=== PATIENT | female | born 1970 | race Caucasian/White ===

== ENCOUNTER → 2019-08-02 08:47 | Outpatient (BNVA) | payer OTHER, SELFPAY | PROVIDERS: Family Provider Nurse Practitioner Family; PCP Nurse Practitioner Family; Visit Provider Registered Nurse | DX: I10 Essential (primary) hypertension (principal); M19.90 Unspecified osteoarthritis, unspecified site; E03.9 Hypothyroidism, unspecified | CPT/HCPCS: 80053; 80061; 84443; 85025 ==

== ENCOUNTER → 2019-11-15 08:59 | Outpatient (BNVA) | payer OTHER, SELFPAY | PROVIDERS: Family Provider Nurse Practitioner Family; PCP Nurse Practitioner Family; Visit Provider Registered Nurse | DX: E03.9 Hypothyroidism, unspecified (principal); I10 Essential (primary) hypertension; E78.49 Other hyperlipidemia | CPT/HCPCS: 80053; 80061 ==

== ENCOUNTER 2020-10-12 11:31 | Outpatient (CLI) | payer OTHER, SELFPAY ==
--- NOTE | 2020-10-12 11:45 | MR_ITS ---
WS: [id number] MRI CERVICAL SPINE NONCONTRAST HISTORY: M50.90 - Cervical disc disorder, unspecified, unspecified cervical region COMPARISON: 01/12/2018 Technique: Multiplanar, multisequence noncontrast imaging of the cervical spine. Straightening of the normal cervical lordosis. Disc bulging and osteophytosis at C5-6 and C6-7 has sl ightly progressed since the prior study. There is no contact on the ventral cervical cord. Signal within the cervical cord is normal. Visualized posterior fossa is unremarkable. Craniocervical junction, C1 and C2 relationship, odontoid process and soft tissues are normal. C2-C3: Normal. C3-C4: Mild osteophytic ridging. No stenosis. C4-C5: Shallow central disc protrusion. Very mild narrowing of the foramen. C5-C6: Diffuse osteophytic ridging and annular disc bulging. Disc contacts the ventral cord. There is moderate to severe central and foraminal stenosis due to disc osteophyte disease. C6-C7: Diffuse annular disc bulging and osteophytic ridging contacting the ventral cord. Moderate to severe central and bilateral foraminal stenosis. C7-T1: Normal. Paraspinal soft tissue are normal. MR/MR cervical spin wo con* [id number] IMPRESSION: 1. 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 2. Cord contact at C5-6 and C6-7 without myelomalacia.
== END 2020-10-12 11:32 | disposition home or self-care (01) ==
LOC: RADSHAW 11:39
PROVIDERS: PCP Registered Nurse; Visit Provider Registered Nurse
DX: M50.90 Cervical disc disorder, unspecified, unspecified cervical region (principal); G56.93 Unspecified mononeuropathy of bilateral upper limbs; M48.02 Spinal stenosis, cervical region; M25.78 Osteophyte, vertebrae; I10 Essential (primary) hypertension; E03.9 Hypothyroidism, unspecified; E78.5 Hyperlipidemia, unspecified
CPT/HCPCS: 72141; 80053; 80061; 84443; 85025

== ENCOUNTER → 2021-03-05 16:16 | Outpatient (BNVA) | payer OTHER, SELFPAY | PROVIDERS: PCP Registered Nurse; Visit Provider Registered Nurse | DX: I10 Essential (primary) hypertension (principal); E03.9 Hypothyroidism, unspecified; E53.8 Deficiency of other specified B group vitamins; G56.93 Unspecified mononeuropathy of bilateral upper limbs; M19.90 Unspecified osteoarthritis, unspecified site; M50.30 Other cervical disc degeneration, unspecified cervical region; R53.83 Other fatigue | CPT/HCPCS: 80053; 82607; 84443 ==

== ENCOUNTER → 2021-08-15 15:53 | Outpatient (BNVA) | payer OTHER, SELFPAY | PROVIDERS: PCP Registered Nurse; Visit Provider Registered Nurse | DX: I10 Essential (primary) hypertension (principal); E78.5 Hyperlipidemia, unspecified | CPT/HCPCS: 80053; 80061; 84443; 84481 ==

== ENCOUNTER → 2021-09-10 14:57 | Outpatient (BNVA) | payer OTHER, SELFPAY | PROVIDERS: PCP Registered Nurse; Referring Provider Registered Nurse; Visit Provider Obstetrics & Gynecology | DX: E03.9 Hypothyroidism, unspecified (principal) | CPT/HCPCS: 84443 ==

== ENCOUNTER 2022-07-29 09:57 | Outpatient (CLI) | payer OTHER, SELFPAY ==
--- NOTE | 2022-07-29 10:06 | MM_ITS ---
WS: [id number] BILATERAL SCREENING DIGITAL TOMOSYNTHESIS MAMMOGRAM WITH CAD HISTORY: SCREENING COMPARISON: 12/16/2017 and 12/03/2016 Bilateral CC and MLO views with tomosynthesis and synthetic mammography submitted. Computer aided det ection analyzed. Breast composition: The breasts are heterogeneously dense, which may obscure small masses. No suspici ous masses, microcalcifications or architectural distortion. MM/[place] [id number] IMPRESSION: BI-RADS: 2-Benign FOLLOW UP: 1 Year Follow-up
== END 2022-07-29 09:58 | disposition home or self-care (01) ==
LOC: RAD 10:03
PROVIDERS: PCP Family Medicine; Visit Provider Family Medicine
DX: Z12.31 Encounter for screening mammogram for malignant neoplasm of breast (principal)
CPT/HCPCS: 77063; 77067

== ENCOUNTER 2023-12-11 08:00 | Outpatient (CLI) | payer OTHER, SELFPAY ==
--- NOTE | 2023-12-11 08:03 | MM_ITS ---
WS: [id number] BILATERAL SCREENING DIGITAL TOMOSYNTHESIS MAMMOGRAM WITH CAD HISTORY: SCREENING COMPARISON: 07/29/2022, 12/16/2017 Bilateral CC and MLO views with tomosynthesis and synthetic mammography submitted. Computer aided det ection analyzed. Breast composition: The breasts are heterogeneously dense, which may obscure small masses. No suspici ous masses, microcalcifications or architectural distortion. Biopsy clip reidentified in the anterior RIGHT breast. Benign calcifications and asymmetries within each breast are stable. MM/[place] [id number] IMPRESSION: BI-RADS: 2-Benign FOLLOW UP: 1 Year Follow-up
== END 2023-12-11 08:02 | disposition home or self-care (01) ==
PROVIDERS: PCP Family Medicine; Visit Provider Family Medicine
DX: Z12.31 Encounter for screening mammogram for malignant neoplasm of breast (principal); R92.333 Mammographic heterogeneous density, bilateral breasts; N64.89 Other specified disorders of breast; R92.1 Mammographic calcification found on diagnostic imaging of breast
CPT/HCPCS: 77063; 77067

== ENCOUNTER 2025-03-28 10:01 | Outpatient (CLI) | payer OTHER, SELFPAY ==
--- NOTE | 2025-03-28 10:08 | MM_ITS ---
WS: [id number] BILATERAL SCREENING DIGITAL TOMOSYNTHESIS MAMMOGRAM WITH CAD HISTORY: ANNUAL SCREEN COMPARISON: 12/16/2017, 12/11/2023 and 07/29/2022 Bilateral CC and MLO views with tomosynthesis and synthetic mammography submitted. Computer aided detection analyzed. Breast composition: There are scattered areas of fibroglandular density. No suspicious masses, microcalcifications or architectural distortion. Biopsy clip in the anterior RIGHT breast at 12:00. There are a few additional calcifications scattered throughout each breast. No suspicious grouping of calcifications. No mass. MM/MM scr BI tomosynthesis [id number] IMPRESSION: BI-RADS: 2 - Benign. FOLLOW UP: 1 Year Follow-up
== END 2025-03-28 10:02 | disposition home or self-care (01) ==
LOC: RAD 10:04
PROVIDERS: PCP Family Medicine; Visit Provider Family Medicine
DX: Z12.31 Encounter for screening mammogram for malignant neoplasm of breast (principal); R92.323 Mammographic fibroglandular density, bilateral breasts; Z96.89 Presence of other specified functional implants
CPT/HCPCS: 77063; 77067